=== PATIENT | male | born 1975 | race Caucasian/White ===

== ENCOUNTER 2018-06-05 09:50 | Day surgery (SDC) | payer OTHER ==
[2018-06-05] VITALS (10 sets, daily range): BP systolic 119–153; BP diastolic 53–77
[~2018-06-05] VITALS: Ht 175.3 cm; Wt 86.2 kg
[~2018-06-05 09:50] MED LIST: ceFAZolin sod 1 GM in NS 55 ML IVPB ONE
[2018-06-05] MEDS ORDERED: HYDROCODON-ACE1 EA13 ORAL (10:31)
[2018-06-05] MEDS ORDERED: Lidocaine 1% 10mg/ml/EPI 0.01mg/ml 50ml INJ ONE (10:54)
[2018-06-05] MEDS ORDERED: Betadine 10% Oint 30gm TOPIC ONE (10:54)
[2018-06-05] MEDS ORDERED: Oxymetazoline 0.05% Na Spray 30ml NASAL ONE (10:54)
[2018-06-05] MEDS ORDERED: Bacitracin Oint 15gm Tube TOPIC ONE (10:54)
[2018-06-05] MEDS ORDERED: Cocaine HCl 4% 4ml vial TOPIC ONE (10:54)
[2018-06-05] MEDS ORDERED: Kenalog-40 1ml Vial ONE (10:54)
[2018-06-05] MEDS ORDERED: Lidocaine 1% MPF 10mg/ml 5ml ONE ×2 (11:27→12:01)
[2018-06-05] MEDS ORDERED: Midazolam 2mg/2ml Inj ONE (11:31)
[2018-06-05] MEDS ORDERED: fentaNYL 100 mcg/2 mL IV ONE ×2 (11:31→13:04)
[2018-06-05] MEDS ORDERED: Zemuron 50mg/5ml Inj IV ONE (11:36)
[2018-06-05] MEDS ORDERED: Succinylcholine 20mg/ml 10ml vial ONE (11:36)
--- NOTE | 2018-06-05 11:46 | Pre-Procedure Note/Attestation ---
Pre-Procedure Note/Attestation Complete Prior to Procedure Planned Procedure: not applicable Procedure Narrative: nasal obstruction unresponsive to medical treatment Indications for Procedure Pre-Operative Diagnosis: septal deviation, bilateral hypertrophied inferior turbinates. obstructing nasal deformity with collapsed internal valve Attestation I attest that I discussed the nature of the procedure; its benefits; risks and complications; and alternatives (and the risks and benefits of such alternatives ), prior to the procedure, with the patient (or the patient's legal client service representative). I attest that, if there was a reasonable possibility of needing a blood transfusion, the patient (or the patient's legal client service representative) was given the [facility] standardized written summary, pursuant to the [place] Blood Safety Act ([place] Health and Safety Code # 1645, as amended). I attest that I re-evaluated the patient just prior to the surgery and that there has been no change in the patient's H&P, except as documented below: Titus Trevino MD Jun 05, 2018 11:46
[2018-06-05] MEDS ORDERED: Lidocaine 1% Plain 30 ml INJ ONE ×3 (11:59→13:26)
[2018-06-05] MEDS ORDERED: Sterile Water Irrig 1000ml IRRIG ONE (12:00)
[2018-06-05] MEDS ORDERED: NS Irrig 1000ml ONE (12:00)
[2018-06-05] MEDS ORDERED: LR 1000ml ONE (12:00)
[2018-06-05] MEDS ORDERED: Propofol 200mg/20ml IV ONE (12:00)
[2018-06-05] MEDS ORDERED: Dexamethasone 4mg/ml vial ONE (12:01)
[2018-06-05] MEDS ORDERED: Sodium Chloride 10ml vial INJ ONE (12:25)
[2018-06-05] MEDS ORDERED: oxyCODONE HCL/Acetaminophen 5/325mg ORAL PRN (12:30)
[2018-06-05] MEDS ORDERED: Atropine Sulfate 0.4mg/ml inj IVP PRN (12:30)
[2018-06-05] MEDS ORDERED: HYDROcodone/Acetamin 7.5/325 tab ORAL PRN (12:30)
[2018-06-05] MEDS ORDERED: Ketorolac 30mg Inj IV PRN ×2 (12:30)
[2018-06-05] MEDS ORDERED: LR 1000ml 1,000 ML IVLG SCH (12:30)
[2018-06-05] MEDS ORDERED: Midazolam 2mg/2ml Inj IVP PRN (12:30)
[2018-06-05] MEDS ORDERED: Labetalol 5mg/ml 20ml vial IV PRN (12:30)
[2018-06-05] MEDS ORDERED: HYDROcodone/Acetamin 5/325 tab ORAL PRN (12:30)
[2018-06-05] MEDS ORDERED: Hydromorphone 0.5mg/0.5ml inj IVP PRN (12:30)
[2018-06-05] MEDS ORDERED: Acetaminophen (Non formulary) 100 ML IV ONE (12:30)
[2018-06-05] MEDS ORDERED: LORazepam Inj 2mg/ml 1ml IV PRN (12:30)
[2018-06-05] MEDS ORDERED: Metoclopramide 10mg/2ml Inj IVP PRN (12:30)
[2018-06-05] MEDS ORDERED: Meperidine 50mg/ml Inj(FOR RIGORS ONLY) IVP PRN (12:30)
[2018-06-05] MEDS ORDERED: DiphenhydrAMINE 50mg/ml Inj IVP PRN (12:30)
[2018-06-05] MEDS ORDERED: fentaNYL 100 mcg/2 mL IV PRN (12:30)
--- NOTE | 2018-06-05 12:37 | Anethesia Preoperative Eval ---
Anesthesia Pre-op PMH/ROS General Date of Evaluation: Jun 05, 2018 Time of Evaluation: 11:41 Anesthesiologist: Alexis ASA Score: ASA 2 Mallampati Score Class I : Soft palate, uvula, fauces, pillars visible Class II: Soft palate, uvula, fauces visible Class III: Soft palate, base of uvula visible Class IV: Only hard plate visible Mallampati Classification: Class I Surgeon: Uriel Diagnosis: Nasal Obstruction Surgical Procedure: Septoplasty, SMR Turbinates Anesthesia History: none Family History: no anesthesia problems Allergies: Coded Allergies: SULFA (SULFONAMIDE ANTIBIOTICS) (Verified Allergy, Unknown, 06/04/18) Medications: see eMAR Patient NPO?: Yes Past Medical History Cardiovascular: Reports: other - HL Pulmonary: Reports: asthma PSxH Narrative: Vocal Cord Polyps removed 2003 Anesthesia Pre-op Phys. Exam Physician Exam Last Vital Signs Date Time Temp Pulse Resp B/P (MAP) Pulse Ox O2 Delivery O2 Flow Rate FiO2 06/05/18 10:37 98.1 58 20 119/77 100 Room Air Constitutional: NAD Neurologic: CN 2-12 intact Cardiovascular: RRR Respiratory: CTA Gastrointestinal: S/NT/ND Airway Exam Mallampati Score: Class I MO: full ROM: full Teeth: intact Anesthesia Pre-op A/P Pre-Antibiotics Dru Grams Ancef IV Given Within 1 Hr of Incision: Yes Time Given: 12:01 Portillo Espinoza MD Jun 05, 2018 12:37
--- NOTE | 2018-06-05 12:38 | Immediate Post-Op Evaluation ---
Immediate Post-Op Evalulation Immediate Post-Op Evalulation Procedure: Septoplasty, SMR Turbinates Date of Evaluation: Jun 05, 2018 Time of Evaluation: 14:32 IV Fluids: 800 LR Blood Products: 0 Estimated Blood Loss: 50 Urinary Output: 0 Blood Pressure Systolic: 153 Blood Pressure Diastolic: 71 Pulse Rate: 63 Respiratory Rate: 16 O2 Sat by Pulse Oximetry: 99 Temperature (Fahrenheit): 97.3 Pain Score (1-10): 2 Nausea: No Vomiting: No Complications 0 Patient Status: awake, reacts, patent, extubated, none Hydration Status: adequate Dru Grams Ancef IV Given Within 1 Hr of Incision: Yes Time Given: 12:01 Portillo Espinoza MD Jun 05, 2018 12:38
--- NOTE | 2018-06-05 12:39 | 48 Hour Post Anesthesia Eval ---
Post Anesthesia Evaluation Procedure: Septoplasty, SMR Turbinates Date of Evaluation: Jun 05, 2018 Time of Evaluation: 16:42 Blood Pressure Systolic: 138 0: 68 Pulse Rate: 56 Respiratory Rate: 18 Temperature (Fahrenheit): 98.2 O2 Sat by Pulse Oximetry: 99 Airway: patent Nausea: No Vomiting: No Pain Intensity: 2 Hydration Status: adequate Cardiopulmonary Status: Stable Mental Status/LOC: patient returned to baseline Follow-up Care/Observations: 0 Post-Anesthesia Complications: 0 Follow-up care needed: ready to discharge Portillo Espinoza MD Jun 05, 2018 12:39
[2018-06-05] MEDS ORDERED: Glycopyrrolate 0.2mg/ml 1ml Vial ONE (13:55)
--- NOTE | 2018-06-05 14:12 | Brief Operative Note ---
Immediate Post Operative Note Operative Note Pre-op Diagnosis: septal deviation, bilateral hypertrophied inferior turbinates. obstructing nasal deformity with collapsed internal valve Procedure: septoplasty, bilateral inferior turbinectomies with intramural coagulation. repair of collapsed left internal valve Post-op Diagnosis: same as pre-op Surgeon: Titus Trevino M.D. Anesthesiologist: Pérez Miller, Anesthesia: MAC Specimen: yes - septum Complications: none Condition: stable Fluids: ringers lactate Estimated Blood Loss: minimal Drains: none Packing: telfa Implant(s) used?: No Titus Trevino MD Jun 05, 2018 14:12
--- NOTE | 2018-06-06 00:45 | Operative Note - Dictated ---
DATE OF OPERATION: 06/05/2018 SURGEON: Titus Trevino M.D. ANESTHESIOLOGIST: Dr. Espinoza. ANESTHESIA: MAC. PREOPERATIVE DIAGNOSES: 1. Septal deviation. 2. Bilateral hypertrophied inferior turbinates. 3. Obstructing nasal deformity. POSTOPERATIVE DIAGNOSES: 1. Septal deviation. 2. Bilateral hypertrophied inferior turbinates. 3. Left internal valve collapse. PROCEDURES: 1. Septoplasty. 2. Bilateral inferior turbinectomies with intramural coagulation. 3. Repair of collapsed left internal valve with rotation advancement flap. INDICATIONS FOR SURGERY: The patient is a 42-year-old male who complains of nasal obstruction, which has been unresponsive to medication. His examination reveals a severe left septal deviation. This combined with the patient's bilateral hypertrophied inferior turbinates and collapsed the left internal valve. It has created a left greater than right nasal airway obstruction. He is now being brought to the operating room for surgical repair. PROCEDURE AND FINDINGS: The patient was brought to the operative room while premedicated and having received preoperative antibiotics. He was then placed supine position on the operating room table. After the patient underwent satisfactory endotracheal intubation, he was given IV sedation. The nasal cavity was sprayed with 0.25% Charles-Synephrine. Sterile Q-tips saturated with Betadine were used to sterilize the intranasal area. Approximately 28 mL of 1% Xylocaine with 1:1000 epinephrine were used to inject the nasal and septal frameworks. Less than 200 mg of cocaine were used on intranasal packing. It was noted during the injection that the tissue was very resistant indicating significant scar tissue bilaterally. The patient then prepped and draped in usual sterile fashion. After a suitable time had transpired for vasoconstriction, the packing was removed. The left inferior septal incision was made and a left mucoperichondrial mucoperiosteal flap was elevated running into significant scar tissue in the areas of multiple fracture sites. An incision was made between the cartilage and bony septum and the right mucoperiosteal flap was then elevated. That portion of overriding and obstructing perpendicular plate of the ethmoid and vomer bone were incised in strips through the remaining attachments and removed from the field of operation. A similar procedure was performed on the cartilaginous septum maintaining good anterior and inferior support. A mallet and chisel were used to remove a huge left maxillary crest spur, which was abutting up against the left inferior turbinate. The maxillary crest was then from the remaining attachments and removed from the field of operation. Re-examination now revealed the septum to be in a more midline physiologic position for breathing. An incision was made in the undersurface of both inferior turbinates and mucosa stripped the underlying bone. The inferior turbinates then outfractured and small piece of bone removed from the pocket. This was accomplished after both inferior turbinates had undergone intramural coagulation. Re-examination still revealed collapse of the left internal valve. The left mucoperichondrium was elevated off the more anterior aspect of the septum. An incision was made between the upper and lower lateral cartilage carried over the anterior dorsum to the septal angle and connected with the inferior septal incision. Two vertical incisions were made with a 15 blade through the mucoperichondrium down to the underlying septum on the very anterior inferior aspect of the collapsed internal valve. A transverse incision was made inferiorly connecting the 2 vertical incisions. The entire flap was then rotated anteriorly and laterally alleviating the nasal obstruction. A relaxing incision was made in the midportion of the left inferior mucoperichondrium. This was then elevated anteriorly. The advanced mucoperichondrium was sutured to the very inferior aspect of the rotation flap with interrupted 4-0 plain. A 4-0 plain was also used to close the incision between the upper and lower lateral cartilage. Re-examination now revealed the patient was in excellent bilateral nasal airway. All blood was suctioned from the nose and nasopharynx area. A 4-0 plain was used to close the septal incision as well as to splint the septum. Telfa coated with Betadine ointment was secured in place with a suture of 3-0 silk and the procedure was terminated. The patient tolerated the procedure well and left the operating room in satisfactory condition. Estimated blood loss was 40 mL. Sponge and needle count were correct. Titus Trevino M.D. DR: IMANI JOB#: [id number] CC:
== END 2018-06-05 16:05 | disposition home or self-care (01) ==
LOC: SUR 09:50
DX: J34.2 Deviated nasal septum (principal); J34.3 Hypertrophy of nasal turbinates; M95.0 Acquired deformity of nose; M50.30 Other cervical disc degeneration, unspecified cervical region; Z88.2 Allergy status to sulfonamides
CPT/HCPCS: 30140; 30465; 30520; J0330; J0690; J1100; J2001; J2250; J2405; J2704; J3010; 94003; 94150